=== PATIENT | male | born 1995 | race Caucasian/White ===

== ENCOUNTER 2019-08-03 01:29 | Emergency (ER) | payer BC ==
[~2019-08-03 01:29] MED LIST: ANAPROX275 MG PO; CLINDAMYCIN HC300 MG PO; HYDROCODONE BIT1 T11 PO; MOTRIN800 MG PO; NAPROSYN500 MG PO; PEN-V500 MG PO
[2019-08-03 01:37] VITALS: BP 124/77
[2019-08-03] MEDS ORDERED: NAPROSYN EC375 MG PO (03:23)
== END 2019-08-03 03:20 | disposition home or self-care (01) ==
LOC: ED 01:29
DX: S93.401A Sprain of unspecified ligament of right ankle, initial encounter (principal); Z79.899 Other long term (current) drug therapy; X58.XXXA Exposure to other specified factors, initial encounter; Y93.89 Activity, other specified; Y92.89 Other specified places as the place of occurrence of the external cause; Y99.8 Other external cause status